=== PATIENT | male | born 1980 | race Caucasian/White ===

== ENCOUNTER 2017-11-09 04:32 | Emergency (ER) | payer SELFPAY ==
[2017-11-09 04:40] VITALS: BP 138/80
[2017-11-09] MEDS ORDERED: POLYMYXIN B/TRIMETH OPHTH DROPS RIGHTEYE STA (04:40)
--- NOTE | 2017-11-09 04:44 | ED Physician Documentation ---
PD HPI OPHTHO - Stated complaint Stated Complaint: EYE PX - Chief complaint Chief Complaint: Heent - History obtained from History obtained from: Patient - History of Present Illness Timing - onset: Yesterday Timing - details: Gradual onset, Still present Location: Right Associated symptoms: Redness, Discharge, Matting Similar symptoms before: Has not had sx before Recently seen: Not recently seen - Additional information Additional information: Patient is a 37 year old male who is presenting to the emergency department for eye redness and discharge. patient states that his right eye was slightly red yesterday and this morning when he woke up it was matted shut. Patient does not wear glasses and denies any trauma. Review of Systems Ten Systems: 10 systems reviewed and negative Eyes: reports: Decreased vision, Discharge, Irritation PD PAST MEDICAL HISTORY - Present Medications Home Medications: Ambulatory Orders Medication Instructions Recorded Confirmed Polymyxin B Sulf/Trimethoprim 1 drop RIGHTEYE Q3H 7 Days drops 11/09/17 [Polytrim Eye Drops] - Allergies Allergies/Adverse Reactions: Allergies Allergy/AdvReac Type Severity Reaction Status Date / Time Penicillins Allergy Unknown Verified 11/09/17 04:40 PD ED PE NORMAL - Vitals Vital signs reviewed: Yes - General General: Alert and oriented X 3, Well developed/nourished - HEENT HEENT: Atraumatic - Neck Neck: Supple, no meningeal sign - Cardiac Cardiac: RRR - Respiratory Respiratory: No respiratory distress - Abdomen Abdomen: Non distended - Derm Derm: Normal color, No rash - Extremities Extremities: No deformity - Neuro Neuro: Alert and oriented X 3 Eye Opening: Spontaneous PD ED PE EXPANDED - Eyes Eyes: Visual acuity - see nn, Right eye, Injected conj/sclera, Exudate Results - Vitals Vitals: Vital Signs - 24 hr 11/09/17 04:38 Temperature 36.6 C Heart Rate 81 Respiratory 16 Rate Blood Pressure 138/80 H O2 Saturation 99 Oxygen O2 Source Room air PD MEDICAL DECISION MAKING - ED course Complexity details: reviewed old records, considered differential, d/w patient ED course: Patient was seen and examined at bedside. patient's findings were consistent with conjunctivitis. Patient was treated with polytrim and was stable for discharge with outpatient follow up. - Sepsis Event Vital Signs: Vital Signs - 24 hr 11/09/17 04:38 Temperature 36.6 C Heart Rate 81 Respiratory 16 Rate Blood Pressure 138/80 H O2 Saturation 99 Oxygen O2 Source Room air Departure - Departure Disposition: 01 Home, Self Care Clinical Impression: Conjunctivitis Condition: Good Instructions: Conjunctivitis Follow-Up: primary,care provider [Other] - Within 3 Days Prescriptions: Polymyxin B Sulf/Trimethoprim [Polytrim Eye Drops] 1 drop RIGHTEYE Q3H 7 Days drops Comments: Your symptoms today are being caused by conjunctivitis or infection in your eye. You should use the eye drops 6 times a day for the next week. You should make sure you wash your hands before any interaction with other people. You should follow up with your doctor if your symptoms don't improve in the next few days. Forms: Activity restrictions
== END 2017-11-09 04:53 | disposition home or self-care (01) ==
LOC: ED 04:32
DX: H10.9 Unspecified conjunctivitis (principal)
CPT/HCPCS: 99283; A9270